=== PATIENT | female | born 1990 | race Hispanic/Latino ===

== ENCOUNTER 2023-01-03 22:45 | Emergency (ER) | payer BC ==
[2023-01-03] MEDS ORDERED: NA CHLORIDE 0.9% 1,000 ML ONE (23:36)
[2023-01-04 00:09] LABS: Absolute Lymphocytes (CBC) 2.8 K/uL (0.7-4.9); Hematocrit 39.4 % (36.0-45.0); Lymphocytes % 21.2 % (15.3-44.8); MCV 85.7 fL (80-100); MPV 8.8 fL (7.6-11.3); Platelets 288 thou/uL (152-406)
[2023-01-04 00:10] LABS: Protime INR 1.13
[2023-01-04 00:20] LABS: Albumin 4.1 g/dL (3.4-5.0); Bilirubin Direct 0.1 mg/dL (0-0.2); Bilirubin Indirect, Calculated 0.2 mg/dL (0.2-0.8); Bilirubin Total 0.3 mg/dL (0.2-1.0); Magnesium 1.8 mg/dL (1.6-2.4); Potassium 3.7 mEq/L (3.5-5.1); Protein, Total 8.2 g/dL (6.4-8.2)
--- NOTE | 2023-01-04 02:25 | ER ---
Nurse's Notes [facility] [place] Name: Lay Montes De Oca Age: 32 yrs Sex: Female : 1990 Arrival Date: 01/03/2023 Time: 22:45 Bed 19 Private MD: Diagnosis: Right lower extremity partial musculature tear - soleus musculature;Right lower extremity sprain, right gastrocnemius and soleus sprain Presentation: 01/03 22:49 Chief complaint: Patient states: she was playing volleyball, when she injured her right ap3 calf. patient reports feeling as though "i tore my calf". Coronavirus screen: At this time, the client does not indicate any symptoms associated with coronavirus-19. Ebola Screen: No symptoms or risks identified at this time. Initial Sepsis Screen: Does the patient meet any 2 criteria? No. Patient's initial sepsis screen is negative. Does the patient have a suspected source of infection? No. Patient's initial sepsis screen is negative. Risk Assessment: Do you want to hurt yourself or someone else? Patient reports no desire to harm self or others. Onset of symptoms was January 03, 2023. 22:49 Method Of Arrival: Ambulatory ap3 22:49 Acuity: SIMBA 4 ap3 Triage Assessment: 22:50 General: Appears in no apparent distress. Behavior is calm, cooperative, appropriate ap3 for age. Pain: Complains of pain in right calf Pain currently is 0 out of 10 on a pain scale. at worst was 10 out of 10 on a pain scale. Alleviated by rest, Aggravated by exercise, increased activity, weight bearing. Neuro: Level of Consciousness is awake, alert, obeys commands, Oriented to person, place, time, situation, Appropriate for age Speech is normal. Cardiovascular: Patient's skin is warm and dry. Respiratory: Airway is patent Respiratory effort is even, unlabored, Respiratory pattern is regular, symmetrical. Historical: - Allergies: 22:50 No Known Allergies; ap3 - Home Meds: 22:50 None [Active]; ap3 - PMHx: 22:50 None; ap3 - Immunization history:: Client reports receiving the 2nd dose of the Covid vaccine, Last tetanus immunization: unknown. - Social history:: Smoking status: Patient denies any tobacco usage or history of. - Family history:: not pertinent. Screenin:51 Abuse screen: Denies threats or abuse. Nutritional screening: No deficits noted. ap3 Tuberculosis screening: No symptoms or risk factors identified. 22:51 [facility] ED Fall Risk Assessment (Adult) History of falling in the last 3 months, ha1 including since admission No falls in past 3 months (0 pts) Confusion or Disorientation No (0 pts) Intoxicated or Sedated No (0 pts) Impaired Gait No (0 pts) Mobility Assist Device Used No (0 pt) Altered Elimination No (0 pt) Score/Fall Risk Level 0 - 2 = Low Risk Oriented to surroundings, Maintained a safe environment, Educated pt \\T\\ family on fall prevention, incl call for assistance when getting out of bed, Hourly rounding (assess needs \\T\\ fall precautionary measures) done. Assessment: 22:51 General: Appears comfortable, Behavior is calm, cooperative. Pain: Complains of pain in ha1 right leg Pain does not radiate. Pain currently is 5 out of 10 on a pain scale. Neuro: Level of Consciousness is awake, alert, obeys commands, Oriented to person, place, time, situation. Cardiovascular: Patient's skin is warm and dry. Respiratory: Airway is patent Respiratory effort is even, unlabored, Respiratory pattern is regular, symmetrical. GI: No signs and/or symptoms were reported involving the gastrointestinal system. Musculoskeletal: Circulation, motion, and sensation intact. Range of motion: intact in all extremities, Reports pain in right leg. 23:50 Reassessment: Patient and/or family updated on plan of care and expected duration. Pain ha1 level reassessed. Patient is alert, oriented x 3, equal unlabored respirations, skin warm/dry/pink. 01/04 00:50 Reassessment: Patient and/or family updated on plan of care and expected duration. Pain ha1 level reassessed. Patient is alert, oriented x 3, equal unlabored respirations, skin warm/dry/pink. Vital Signs: 01/03 22:49 BP 137 / 91; Pulse 99; Resp 18; Temp 98.4; Pulse Ox 100% ; Weight 99.79 kg; Pain 10/10; ap3 22:51 BP 125 / 82; Pulse 90; Resp 17 S; Pulse Ox 98% on R/A; ha1 01/04 00:50 BP 134 / 91; Pulse 86; Resp 17 S; Pulse Ox 98% on R/A; ha1 01:50 BP 123 / 80; Pulse 84; Resp 15 S; Pulse Ox 98% on R/A; ha1 02:50 BP 130 / 81; Pulse 78; Resp 18 S; Pulse Ox 98% on R/A; ha1 01/03 22:49 Pain Scale: Adult ap3 ED Course: 01/03 22:47 Patient arrived in ED. mr 22:50 Triage completed. ap3 22:51 Arm band placed on right wrist. ap3 22:51 Patient has correct armband on for positive identification. Placed in gown. Bed in low ha1 position. Call light in reach. Side rails up X 1. Adult w/ patient. 22:53 Kei Parekh MD is Attending Physician. sp4 23:15 Radiology exam delayed due to lab results not completed at this time. (BUN/Creatinine) eh4 test not completed at this time. IV insertion attempt and/or patient not having appropriate IV at this time. 23:30 Basic Metabolic Panel Sent. ha1 23:30 CBC with Diff Sent. ha1 23:30 LFT's Sent. ha1 23:30 Magnesium Sent. ha1 23:31 PT-INR Sent. ha1 23:31 Test, Serum Sent. ha1 23:45 Radha Roman, ELI is Primary Nurse. ha1 01/04 01:04 Lower Ext Angio In Process Unspecified. EDMS 02:24 Dionisio Heaton MD is Referral Physician. sp4 02:54 Provided Education on: follow up. ha1 02:54 No provider procedures requiring assistance completed. ha1 02:54 IV discontinued, intact, bleeding controlled, No redness/swelling at site. Pressure ha1 dressing applied. Administered Medications: 01/03 23:31 Drug: NS 0.9% IV 1000 ml Route: IV; Rate: 1 bolus; Site: right antecubital; ha1 01/04 02:50 Follow up: Response: No adverse reaction; IV Status: Completed infusion; IV Intake: ha1 1000ml Medication: 01/03 22:51 VIS not applicable for this client. ap3 Intake: 01/04 02:50 IV: 1000ml; Total: 1000ml. ha1 Outcome: 02:25 Discharge ordered by . sp4 02:54 Patient left the ED. ha1 02:54 Discharged to home via wheelchair, with family. ha1 02:54 Condition: stable 02:54 Discharge instructions given to patient, family, Instructed on discharge instructions, follow up and referral plans. Demonstrated understanding of instructions, follow-up care. Signatures: Dispatcher [employer] Etta BentleyGermaine, RN RN ap3 Radha Roman RN RN ha1 [place] [id number] Kei Parekh MD MD sp4 Corrections: (The following items were deleted from the chart) 01/03 23:49 22:50 BP 125 / 82; Pulse 90bpm; Resp 17bpm; Spontaneous; Pulse Ox 98% RA; ha1 ha1
--- NOTE | 2023-01-04 02:25 | EDPHYS ---
Physician Documentation [facility] Name: Lay Montes De Oca Age: 32 yrs Sex: Female : 1990 Arrival Date: 01/03/2023 Time: 22:45 Bed 19 Private MD: ED Physician Kei Parekh HPI: 01/03 22:53 This 32 yrs old Female presents to ER via Ambulatory with complaints of Leg sp4 Pain. 01/04 02:50 32-year-old female presents with acute right lower extremity pain around the right sp4 calf. Patient states she was playing volleyball for about 45 minutes and then heard a loud pop in the right lower extremity. Patient developed moderate to severe pain in the right calf associated with pain on ambulation . Patient is still able to flex her right calf. . Historical: - Allergies: 01/03 22:50 No Known Allergies; ap3 - Home Meds: 22:50 None [Active]; ap3 - PMHx: 22:50 None; ap3 - Immunization history:: Client reports receiving the 2nd dose of the Covid vaccine, Last tetanus immunization: unknown. - Social history:: Smoking status: Patient denies any tobacco usage or history of. - Family history:: not pertinent. ROS: 01/04 02:50 Constitutional: Negative for fever, chills, and weight loss, MS/Extremity: Negative for sp4 injury and deformity, positive right lower extremity tenderness, right calf swelling, right calf pain, positive pain with ambulation All other systems are negative. Exam: 02:50 Constitutional: This is a well developed, well nourished patient who is awake, alert, sp4 and in no acute distress. Head/Face: Normocephalic, atraumatic. Eyes: Pupils equal round and reactive to light, extra-ocular motions intact. Lids and lashes normal. Conjunctiva and sclera are not injected. Cornea within normal limits. Periorbital areas with no swelling, redness, or edema. ENT: Nares patent. No nasal discharge, no septal abnormalities noted. Tympanic membranes are normal and external auditory canals are clear. Oropharynx with no redness, swelling, or masses, exudates, or evidence of obstruction, uvula midline. Mucous membranes moist. Neck: Trachea midline, no thyromegaly or masses palpated, and no cervical lymphadenopathy. Supple, full range of motion without nuchal rigidity, or vertebral point tenderness. Chest/axilla: Normal chest wall appearance and motion. Nontender with no deformity. No lesions are appreciated. Cardiovascular: Regular rate and rhythm with a normal S1 and S2. No gallops, murmurs, or rubs. Normal PMI, no JVD. No pulse deficits. Respiratory: Lungs have equal breath sounds bilaterally, clear to auscultation and percussion. No rales, rhonchi or wheezes noted. No increased work of breathing, no retractions or nasal flaring. Abdomen/GI: Soft, non-tender, with normal bowel sounds. No distension or tympany. No guarding or rebound. No evidence of tenderness throughout. Back: No spinal tenderness. No costovertebral tenderness. Skin: Warm, dry with normal turgor. Normal color with no rashes, no lesions, and no evidence of cellulitis. MS/ Extremity: Pulses equal, no cyanosis. Neurovascular intact. Full, normal range of motion. Positive right lower extremity pain, positive right calf tenderness and tense swelling, no sign of hematoma, intact right Achilles tendon, patient is able to flex the right calf. Positive dorsalis pedis and tibialis posterior strong pulses Neuro: Awake and alert, GCS 15, oriented to person, place, time, and situation. Cranial nerves II-XII grossly intact. Motor strength 5/5 in all extremities. Sensory grossly intact. Psych: Awake, alert, with orientation to person, place and time. Behavior, mood, and affect are within normal limits Vital Signs: 01/03 22:49 BP 137 / 91; Pulse 99; Resp 18; Temp 98.4; Pulse Ox 100% ; Weight 99.79 kg; Pain 10/10; ap3 22:51 BP 125 / 82; Pulse 90; Resp 17 S; Pulse Ox 98% on R/A; ha1 01/04 00:50 BP 134 / 91; Pulse 86; Resp 17 S; Pulse Ox 98% on R/A; ha1 01:50 BP 123 / 80; Pulse 84; Resp 15 S; Pulse Ox 98% on R/A; ha1 02:50 BP 130 / 81; Pulse 78; Resp 18 S; Pulse Ox 98% on R/A; ha1 01/03 22:49 Pain Scale: Adult ap3 MDM: 01/03 23:13 Patient medically screened. sp4 01/04 02:12 ED course: CT A Right lower extremity - PROCEDURE: Multiple transaxial tomograms from sp4 the right lower extremity was performed after the administration of large bolus of IV contrast for complete opacification of the arterial system right lower extremity. Subsequent 2-D and 3-D multiplanar reformats, volume rendering technique and maximum intensity projection images were generated in independent workstation. This exam was performed according to our departmental dose-optimization protocol, which includes automated exposure control, adjustment of the mA and/or kV according to patient size and/or use of iterative reconstruction technique. Findings: Right iliac artery: There is no evidence for stenosis/or occlusion. Right lower extremity: Right common femoral artery: Unremarkable. Right profunda: Unremarkable. Right superficial femoral artery: Unremarkable. Right popliteal artery: Unremarkable. Right tibial peroneal trunk: Unremarkable. Right anterior tibial artery: Unremarkable. Dominant vessel Right posterior tibial artery: There is small caliber distally with no evidence for significant stenosis. Right peroneal artery: Unremarkable.. The bone windows demonstrate no evidence for acute bony injuries. There is no periosteal reaction. Incidentally is noted presence of the popcorn-like sclerotic lesion within the distal portion of the femur corresponding to a bone infarct. Joints demonstrate to be within normal limits. The muscles demonstrate normal size and configuration. There is no evidence for muscle wasting/or fatty replacement. The skin and subcutaneous tissue demonstrate no evidence for ulcers/or open wounds. IMPRESSION: No evidence for significant stenosis/or occlusion of the right iliac artery, right lower extremity arteries. Small caliber distally right posterior tibial artery with no evidence for significant stenosis. 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 . 02:23 Data reviewed: vital signs, nurses notes, lab test result(s), radiologic studies, CT sp4 scan. ED course: Patient has no signs of compartment syndrome on exam. Normal pulses. CT reveals no vascular damage. Ortho boot was applied. Elevated blood sugar 196 -we will advised patient to see primary care physician in 7 to 14 days for blood sugar check and also chemistry panel. . 02:50 Differential diagnosis: dislocation, closed fracture, contusion, abrasion, tendonitis. 4 01/03 23:09 Order name: Test, Serum; Complete Time: 02:12 sp4 01/03 23:10 Order name: Basic Metabolic Panel; Complete Time: 02:12 sp4 01/03 23:10 Order name: CBC with Diff; Complete Time: 02:12 sp4 01/03 23:10 Order name: LFT's; Complete Time: 02:12 sp4 01/03 23:10 Order name: Magnesium; Complete Time: 02:12 sp4 01/03 23:10 Order name: PT-INR; Complete Time: 02:12 sp4 01/03 23:15 Order name: Lower Ext Angio EDMS 01/03 23:10 Order name: IV Saline Lock; Complete Time: 23:30 sp4 01/03 23:10 Order name: Labs collected and sent; Complete Time: 23:30 sp4 Administered Medications: 01/03 23:31 Drug: NS 0.9% IV 1000 ml Route: IV; Rate: 1 bolus; Site: right antecubital; ha1 01/04 02:50 Follow up: Response: No adverse reaction; IV Status: Completed infusion; IV Intake: ha1 1000ml Disposition Summary: 01/04/23 02:25 Discharge Ordered Location: Home sp4 Problem: new sp4 Symptoms: have improved sp4 Condition: Stable sp4 Diagnosis - Right lower extremity partial musculature tear - soleus musculature sp4 - Right lower extremity sprain, right gastrocnemius and soleus sprain sp4 Followup: sp4 - With: Dionisio Heaton MD - When: 10 - 14 days - Reason: Recheck today's complaints Discharge Instructions: - Discharge Summary Sheet sp4 - Muscle Strain, Dogi-uh-Iail sp4 Forms: - Work release form ha1 - Patient Portal Instructions sp4 - Leadership Thank You Letter sp4 Signatures: Dispatcher [employer] Germaine Eng RN RN ap3 Radha Roman RN RN ha1 Kei Parekh MD MD sp4
[2023-01-04 03:15] VITALS: TEMP 98.4
[2023-01-04 03:16] VITALS: O2SAT 98
[2023-01-04 03:17] VITALS: BP 134/91
--- NOTE | 2023-01-04 17:56 | RAD REPORT ---
EXAM DESCRIPTION: CT - Lower Ext Angio - 01/04/2023 5:23 am CLINICAL HISTORY: 32 years, Female, Right lower leg pain , muscular tightness COMPARISON: None. FINDINGS: Multiple transaxial tomograms from the right lower extremity was performed after the admin istration of large bolus of IV contrast for complete opacification of the arterial system right lower extremity. Subsequent 2-D and 3-D multiplanar reformats, volume rendering technique and maximum intensity projec tion images were generated in independent workstation. This exam was performed according to our departmental dose-optimization protocol, which includes auto mated exposure control, adjustment of the mA and/or kV according to patient size and/or use of iterat rosa reconstruction technique. Findings: Right iliac artery: There is no evidence for stenosis/or occlusion. Right lower extremity: Right common femoral artery: Unremarkable. Right profunda: Unremarkable. Right superficial femoral artery: Unremarkable. Right popliteal artery: Unremarkable. Right tibial peroneal trunk: Unremarkable. Right anterior tibial artery: Unremarkable. Dominant vessel Right posterior tibial artery: There is small caliber distally with no evidence for significant steno sis. Right peroneal artery: Unremarkable.. The bone windows demonstrate no evidence for acute bony injuries. There is no periosteal reaction. In cidentally is noted presence of the popcorn-like sclerotic lesion within the distal portion of the fe mur corresponding to a bone infarct. Joints demonstrate to be within normal limits. The muscles demon strate normal size and configuration. There is no evidence for muscle wasting/or fatty replacement. T he skin and subcutaneous tissue demonstrate no evidence for ulcers/or open wounds. IMPRESSION: No evidence for significant stenosis/or occlusion of the right iliac artery, right lower extremity arteries. Small caliber distally right posterior tibial artery with no evidence for significant stenosis. 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 Electronically signed by: Misbah Arroyo MD 01/04/2023 1:28 AM CDT Due to temporary technical issues with the PACS/Fluency reporting system, reports are being signed by the in house radiologists without review as a courtesy to insure prompt reporting. The interpreting radiologist is fully responsible for the content of the report.
== END 2023-01-04 02:54 | disposition home or self-care (01) ==
LOC: ER 22:45
DX: S86.111A Strain of other muscle(s) and tendon(s) of posterior muscle group at lower leg level, right leg, initial encounter (principal)
CPT/HCPCS: 96361; 85025; 80048; 36415; 83735; 84703; 85610; 80076; 73706; 96360; 99284; Q9967; J7030